=== PATIENT | male | born 1950 | race African-American/Black ===

== ENCOUNTER 2019-01-29 10:37 | Inpatient (IN) ==
[2019-01-29] MEDS ORDERED: ONDANSETRON 4 MG/2 ML VIAL IV STA (11:08)
[2019-01-29] MEDS ORDERED: SODIUM CHLORIDE 0.9% 1,000 ML IV STA (11:08)
[2019-01-29 11:40] LABS: Basophils % 0.2 % (0.0-0.8); Eosinophils # 0.1 10*3/uL (0.0-0.87); Eosinophils % 0.9 % (0.00-10.9); Hematocrit 43.8 VOL% (42.0-52.0); Immature Granulocytes % 0.6 %; Immature Granulocytes Absolute 0.03 #; Lymphocytes # 1.1 10*3/uL (1.4-4.0); Lymphocytes % 19.8 % (21.2-54.2); Mean Corpuscular Volume 90.9 FL (87-102); Mean Platelet Volume 9.9 FL (9.6-12.0); Monocytes % 18.2 % (1.7-12.7); Neutrophils % 60.3 % (38.7-73.9); Platelet Count 219 T/CUMM (130-400); Red Blood Count 4.82 MC/CUMM (3.8-5.5); Red Cell Distribution Width 13.8 % (9.3-17.3); White Blood Count 5.5 T/CUMM (4-12)
[2019-01-29 11:57] LABS: Alanine Aminotransferase 33 U/L (16-61); Albumin 3.8 G/DL (3.4-5.0); Alkaline Phosphatase 93 U/L (45-117); Aspartate Amino Transferase 21 U/L (0-37); Blood Urea Nitrogen 27 MG/DL (7-18); Calcium 8.7 MG/DL (8.5-10.1); Glucose 137 MG/DL (74-106); Osmolality,Calculated 281.7 MOS/KG (273-304); Total Protein 7.5 G/DL (6.4-8.3)
[2019-01-29] MEDS ORDERED: ACETAMINOPHEN 325 MG TABLET PO PRN (12:58)
[2019-01-29 13:43] LABS: Band Neutrophils 9 % (0-10); Eosinophils 4 % (0-10); Lymphocytes 15 % (20-55); Segmented Neutrophils 56 % (50-85); Total Cells Counted 100
[2019-01-29 13:44] LABS: Anisocytosis 1+; Macrocytosis 1+; Platelet Estimate Normal; Polychromasia 1+
[2019-01-29 13:48] LABS: Apearance,Urine CLEAR (Clear); Bilirubin,Urine Negative (Negative); Blood, Urine Small mg/dL (Negative); Glucose,Urine (UA) Negative (Negative); Hyaline Casts,Urine 21 /LPF (0-3); Ketones,Urine Negative (Negative); Mucus,Urine Many /LPF (Occasional); Nitrite,Urine Negative (Negative); Protein,Urine 30 MG/DL; RBC,Urine 16 /HPF (0-4); Squamous Epithelial Cell,Urine Occasional /HPF (0-10); Urine Color Amber (Yellow); Urine Specific Gravity 1.027 (1.001-1.035); Urine Urobilinogen < 2.0 EU/DL (0.2-1.0); WBC,Urine 12 /HPF (0-6)
[2019-01-29] MEDS: DEXTROSE 5% NACL 0.45% 1,000 ML IV SCH (16:20)
[2019-01-29] MEDS ORDERED: ALBUTEROL/IPRATROPIUM 3 ML NEB RESP TX PRN (21:23)
[2019-01-30] MEDS: DEXTROSE 5% NACL 0.45% 1,000 ML IV SCH ×3 (00:49→16:52)
[2019-01-30] MEDS: MORPHINE 4 MG/1 ML VIAL IV PRN ×2 (03:23→13:39)
[2019-01-30 05:14] LABS: Basophils % 0.2 % (0.0-0.8); Eosinophils # 0.1 10*3/uL (0.0-0.87); Eosinophils % 2.3 % (0.00-10.9); Hemoglobin 12.7 GM/DL (14.0-18.0); Immature Granulocytes % 0.5 %; Immature Granulocytes Absolute 0.02 #; Lymphocytes # 0.9 10*3/uL (1.4-4.0); Lymphocytes % 20.4 % (21.2-54.2); Mean Corpuscular HGB Conc 31.8 GM/DL (32-36); Mean Corpuscular Volume 90.7 FL (87-102); Monocytes % 23.5 % (1.7-12.7); Neutrophils % 53.1 % (38.7-73.9); Platelet Count 213 T/CUMM (130-400); Red Blood Count 4.41 MC/CUMM (3.8-5.5); Red Cell Distribution Width 13.7 % (9.3-17.3); White Blood Count 4.3 T/CUMM (4-12)
[2019-01-30 05:37] LABS: Band Neutrophils 16 % (0-10); Eosinophils 5 % (0-10); Hypochromasia Slight; Lymphocytes 22 % (20-55); Macrocytosis Slight; Platelet Estimate Adequate; Segmented Neutrophils 41 % (50-85); Total Cells Counted 100
[2019-01-30 05:48] LABS: Calcium 8.4 MG/DL (8.5-10.1); Osmolality,Calculated 282.5 MOS/KG (273-304)
[2019-01-30] MEDS: ENOXAPARIN 30 MG/0.3 ML SYRINGE SUBCUT SCH (06:17)
[2019-01-30] MEDS ORDERED: POTASSIUM CHLORIDE 20 MEQ TABLET PO ONE (06:32)
[2019-01-30] MEDS ORDERED: PHENOL 1.4% THROAT SPRAY 177 ML BOTTLE PO PRN (08:04)
[2019-01-30] MEDS: POTASSIUM CHLORIDE 20 MEQ TABLET PO SCH (09:12)
[2019-01-30] MEDS: PANTOPRAZOLE 40 MG TABLET PO SCH (09:12)
[2019-01-30] MEDS: CALCIUM (CITRATE) 200 MG TABLET PO SCH (09:12)
[2019-01-30] MEDS: SIMVASTATIN 10 MG TABLET PO SCH (21:15)
[2019-01-30] MEDS: MONTELUKAST 10 MG TABLET PO SCH (21:15)
[2019-01-31 05:23] LABS: Basophils % 0.6 % (0.0-0.8); Eosinophils # 0.1 10*3/uL (0.0-0.87); Eosinophils % 2.1 % (0.00-10.9); Hematocrit 41.1 VOL% (42.0-52.0); Hemoglobin 13.2 GM/DL (14.0-18.0); Immature Granulocytes % 0.4 %; Immature Granulocytes Absolute 0.02 #; Lymphocytes # 1.4 10*3/uL (1.4-4.0); Lymphocytes % 26.6 % (21.2-54.2); Mean Corpuscular HGB Conc 32.1 GM/DL (32-36); Mean Corpuscular Volume 89.7 FL (87-102); Monocytes % 21.1 % (1.7-12.7); Neutrophils % 49.2 % (38.7-73.9); Platelet Count 214 T/CUMM (130-400); Red Blood Count 4.58 MC/CUMM (3.8-5.5); Red Cell Distribution Width 13.4 % (9.3-17.3); White Blood Count 5.3 T/CUMM (4-12)
[2019-01-31 05:42] LABS: Albumin 3.1 G/DL (3.4-5.0); Bilirubin,Total 1.2 MG/DL (0.2-1.0); Calcium 8.6 MG/DL (8.5-10.1); Osmolality,Calculated 276.7 MOS/KG (273-304); Total Protein 6.7 G/DL (6.4-8.3)
[2019-01-31 06:45] LABS: Band Neutrophils 7 % (0-10); Eosinophils 1 % (0-10); Lymphocytes 26 % (20-55); Platelet Estimate Decreased; Segmented Neutrophils 44 % (50-85); Total Cells Counted 100
[2019-01-31] MEDS: CALCIUM (CITRATE) 200 MG TABLET PO SCH (08:51)
[2019-01-31] MEDS: PANTOPRAZOLE 40 MG TABLET PO SCH (08:52)
[2019-01-31] MEDS: POTASSIUM CHLORIDE 20 MEQ TABLET PO SCH (08:52)
[2019-01-31] MEDS: BENZOCAINE/MENTHOL LOZENGE 18/BOX PO PRN (12:28)
[2019-01-31] MEDS ORDERED: cloNIDine 0.2 MG/24 HR PATCH TRANSDERM SCH (21:30)
[2019-01-31] MEDS: MONTELUKAST 10 MG TABLET PO SCH (21:39)
[2019-01-31] MEDS: SIMVASTATIN 10 MG TABLET PO SCH (21:39)
[2019-01-31] MEDS: DEXTROSE 5% NACL 0.45% 1,000 ML IV SCH (21:57)
[2019-02-01] MEDS ORDERED: metroNIDAZOLE INJ 250 MG in IV BAG 1 EACH IV SCH (01:00)
[2019-02-01] MEDS: DEXTROSE 5% NACL 0.45% 1,000 ML IV SCH (01:00)
[2019-02-01] MEDS: ALBUTEROL/IPRATROPIUM 3 ML NEB RESP TX SCH ×4 (01:29→19:26)
[2019-02-01] MEDS: metroNIDAZOLE INJ 250 MG in IV BAG 1 EACH IV SCH ×4 (02:32→22:21)
[2019-02-01 04:42] LABS: Basophils % 0.3 % (0.0-0.8); Eosinophils # 0.1 10*3/uL (0.0-0.87); Eosinophils % 1.6 % (0.00-10.9); Hematocrit 39.3 VOL% (42.0-52.0); Immature Granulocytes % 0.6 %; Immature Granulocytes Absolute 0.05 #; Lymphocytes # 1.5 10*3/uL (1.4-4.0); Lymphocytes % 19.9 % (21.2-54.2); Mean Corpuscular HGB Conc 33.1 GM/DL (32-36); Mean Corpuscular Volume 87.9 FL (87-102); Mean Platelet Volume 9.6 FL (9.6-12.0); Monocytes % 17.4 % (1.7-12.7); Neutrophils % 60.2 % (38.7-73.9); Platelet Count 214 T/CUMM (130-400); Red Blood Count 4.47 MC/CUMM (3.8-5.5); Red Cell Distribution Width 13.3 % (9.3-17.3); White Blood Count 7.7 T/CUMM (4-12)
[2019-02-01] MEDS: hydrALAZINE 20 MG/1 ML VIAL IV PRN (05:00)
[2019-02-01 05:07] LABS: Calcium 8.9 MG/DL (8.5-10.1); Osmolality,Calculated 275.5 MOS/KG (273-304)
[2019-02-01 05:08] LABS: Eosinophils 4 % (0-10); Hypochromasia Slight; Lymphocytes 15 % (20-55); Microcytosis Slight; Segmented Neutrophils 69 % (50-85); Total Cells Counted 100
[2019-02-01 05:09] LABS: Ovalocytes Slight
[2019-02-01 05:10] LABS: Platelet Estimate Normal
[2019-02-01 05:11] LABS: Atypical Lymphocytes Few
[2019-02-01] MEDS ORDERED: cefOXitin 2,000 MG in SYRINGE 1 EACH IV ONE (09:56)
[2019-02-01] MEDS: FAMOTIDINE 20 MG/2 ML VIAL IV SCH ×2 (10:24→22:22)
[2019-02-01] MEDS: BISOPROLOL 5 MG TABLET PO SCH (10:38)
[2019-02-01] MEDS: cloNIDine 0.3 MG/24 HR PATCH TRANSDERM SCH (10:40)
[2019-02-01] MEDS: POTASSIUM CHLORIDE RIDER 10 MEQ in PREMIX 1 EACH IV SCH ×2 (10:40→18:23)
[2019-02-01] MEDS: CALCIUM (CITRATE) 200 MG TABLET PO SCH (10:41)
[2019-02-01] MEDS: DEXT 5% NACL 0.45% KCL 20 MEQ 20 MEQ/1,000 ML BAG IV SCH ×2 (10:41→17:28)
[2019-02-01] MEDS: POTASSIUM CHLORIDE 20 MEQ TABLET PO SCH (10:42)
[2019-02-01] MEDS: amLODIPine 10 MG TABLET PO SCH (10:42)
[2019-02-01] MEDS ORDERED: LACTATED RINGERS 1,000 ML IV SCH (11:00)
[2019-02-01] MEDS ORDERED: EPINEPHrine 1 MG/ML VIAL ONE (12:09)
[2019-02-01] MEDS ORDERED: BUPIVACAINE 0.5% 50 ML VIAL ONE (12:09)
[2019-02-01] MEDS ORDERED: DEXAMETHASONE 4 MG/1 ML VIAL ONE (12:09)
[2019-02-01] MEDS ORDERED: hydrALAZINE 20 MG/1 ML VIAL ONE (12:33)
[2019-02-01 12:49] LABS: Apearance,Urine CLEAR (Clear); Bacteria,Urine Occasional /HPF (Few); Bilirubin,Urine Negative (Negative); Blood, Urine Negative (Negative); Glucose,Urine (UA) Negative (Negative); Ketones,Urine 5 mg/dL (Negative); Mucus,Urine Occasional /LPF (Occasional); Nitrite,Urine Negative (Negative); Protein,Urine Negative; RBC,Urine 1 /HPF (0-4); Urine Color Yellow (Yellow); Urine Urobilinogen < 2.0 EU/DL (0.2-1.0); WBC,Urine <1 /HPF (0-6)
[2019-02-01] MEDS ORDERED: fentaNYL 100 MCG/2 ML VIAL ONE (12:54)
[2019-02-01] MEDS ORDERED: SEVOFLURANE 1 UNIT/15 MINUTE INH ONE (12:54)
[2019-02-01] MEDS ORDERED: ePHEDrine 50 MG/ML AMP ONE (12:55)
[2019-02-01] MEDS ORDERED: PHENYLEPHRINE 1 MG/10 ML SYRINGE IV ONE (12:55)
[2019-02-01] MEDS ORDERED: MIDAZOLAM 2 MG/2 ML VIAL ONE (12:55)
[2019-02-01] MEDS ORDERED: GLYCOPYRROLATE 0.4 MG/2 ML VIAL ONE (12:55)
[2019-02-01] MEDS ORDERED: SUCCINYLCHOLINE 200 MG/10 ML VIAL ONE (12:56)
[2019-02-01] MEDS ORDERED: NEOSTIGMINE 10 MG/10 ML VIAL ONE (12:56)
[2019-02-01] MEDS ORDERED: LACTATED RINGERS 1,000 ML IV ONE (12:56)
[2019-02-01] MEDS ORDERED: PROPOFOL 200 MG/20 ML VIAL IV ONE (12:56)
[2019-02-01] MEDS ORDERED: ROCURONIUM 100 MG/10 ML VIAL IV ONE (12:56)
[2019-02-01] MEDS ORDERED: ONDANSETRON 4 MG/2 ML VIAL IV PRN (13:06)
[2019-02-01] MEDS ORDERED: hydrALAZINE 20 MG/1 ML VIAL IV ONE (13:24)
[2019-02-01] MEDS: HYDROmorphone 2 MG/1 ML VIAL IV PRN ×3 (13:32→13:55)
[2019-02-01] MEDS: MORPHINE 4 MG/1 ML VIAL IV PRN ×2 (16:58→22:29)
[2019-02-01] MEDS: METOCLOPRAMIDE 10 MG/2 ML VIAL IV SCH (17:57)
[2019-02-01] MEDS: BENZOCAINE/MENTHOL LOZENGE 18/BOX PO PRN (20:40)
[2019-02-01] MEDS: MONTELUKAST 10 MG TABLET PO SCH (22:22)
[2019-02-01] MEDS: SIMVASTATIN 10 MG TABLET PO SCH (22:23)
[2019-02-02] MEDS: METOCLOPRAMIDE 10 MG/2 ML VIAL IV SCH ×4 (00:05→17:23)
[2019-02-02] MEDS: DEXT 5% NACL 0.45% KCL 20 MEQ 20 MEQ/1,000 ML BAG IV SCH ×3 (00:12→21:35)
[2019-02-02] MEDS: ALBUTEROL/IPRATROPIUM 3 ML NEB RESP TX SCH ×5 (00:44→23:06)
[2019-02-02] MEDS: metroNIDAZOLE INJ 250 MG in IV BAG 1 EACH IV SCH ×2 (01:35→09:45)
[2019-02-02 04:58] LABS: Basophils % 0.2 % (0.0-0.8); Hemoglobin 12.5 GM/DL (14.0-18.0); Immature Granulocytes % 0.9 %; Immature Granulocytes Absolute 0.08 #; Lymphocytes # 0.9 10*3/uL (1.4-4.0); Lymphocytes % 10.1 % (21.2-54.2); Mean Corpuscular HGB Conc 32.1 GM/DL (32-36); Mean Corpuscular Volume 89.9 FL (87-102); Mean Platelet Volume 9.7 FL (9.6-12.0); Monocytes % 15.7 % (1.7-12.7); Neutrophils % 73.1 % (38.7-73.9); Platelet Count 204 T/CUMM (130-400); Red Blood Count 4.34 MC/CUMM (3.8-5.5); Red Cell Distribution Width 13.6 % (9.3-17.3); White Blood Count 9.3 T/CUMM (4-12)
[2019-02-02 05:16] LABS: Albumin 2.8 G/DL (3.4-5.0); Bilirubin,Total 1.2 MG/DL (0.2-1.0); Calcium 8.1 MG/DL (8.5-10.1); Osmolality,Calculated 280.4 MOS/KG (273-304); Total Protein 6.3 G/DL (6.4-8.3)
[2019-02-02 05:18] LABS: Band Neutrophils 8 % (0-10); Lymphocytes 11 % (20-55); Segmented Neutrophils 65 % (50-85); Total Cells Counted 100
[2019-02-02 05:19] LABS: Hypochromasia Slight; Microcytosis Slight; Ovalocytes Slight; Platelet Estimate Adequate
[2019-02-02 05:23] LABS: Thyroid Stimulating Hormone 0.887 uIU/ml (0.358-3.74)
[2019-02-02] MEDS: MORPHINE 4 MG/1 ML VIAL IV PRN (06:15)
[2019-02-02] MEDS: BENZOCAINE/MENTHOL LOZENGE 18/BOX PO PRN ×2 (06:15→09:45)
[2019-02-02] MEDS ORDERED: MEPERIDINE 25 MG/1 ML VIAL IV PRN (09:10)
[2019-02-02] MEDS: CALCIUM (CITRATE) 200 MG TABLET PO SCH (09:48)
[2019-02-02] MEDS: FAMOTIDINE 20 MG/2 ML VIAL IV SCH ×2 (09:49→20:14)
[2019-02-02] MEDS: BISOPROLOL 5 MG TABLET PO SCH (09:49)
[2019-02-02] MEDS: POTASSIUM CHLORIDE 20 MEQ TABLET PO SCH (09:49)
[2019-02-02] MEDS: amLODIPine 10 MG TABLET PO SCH (09:49)
[2019-02-02] MEDS: ENOXAPARIN 30 MG/0.3 ML SYRINGE SUBCUT SCH (20:14)
[2019-02-02] MEDS: SIMVASTATIN 10 MG TABLET PO SCH (21:56)
[2019-02-02] MEDS: MONTELUKAST 10 MG TABLET PO SCH (21:56)
[2019-02-03] MEDS: METOCLOPRAMIDE 10 MG/2 ML VIAL IV SCH ×4 (00:12→18:56)
[2019-02-03 05:13] LABS: Basophils # 0.1 10*3/uL (0.0-0.2); Basophils % 0.5 % (0.0-0.8); Eosinophils # 0.1 10*3/uL (0.0-0.87); Eosinophils % 0.7 % (0.00-10.9); Hematocrit 38.2 VOL% (42.0-52.0); Hemoglobin 12.6 GM/DL (14.0-18.0); Immature Granulocytes % 1.7 %; Lymphocytes # 1.4 10*3/uL (1.4-4.0); Lymphocytes % 12.1 % (21.2-54.2); Mean Corpuscular Volume 88.6 FL (87-102); Mean Platelet Volume 10.3 FL (9.6-12.0); Platelet Count 198 T/CUMM (130-400); Red Blood Count 4.31 MC/CUMM (3.8-5.5); Red Cell Distribution Width 13.6 % (9.3-17.3); White Blood Count 11.9 T/CUMM (4-12)
[2019-02-03] MEDS: DEXT 5% NACL 0.45% KCL 20 MEQ 20 MEQ/1,000 ML BAG IV SCH ×3 (05:39→22:55)
[2019-02-03 06:04] LABS: Bilirubin,Total 1.1 MG/DL (0.2-1.0); Calcium 8.8 MG/DL (8.5-10.1); Osmolality,Calculated 278.5 MOS/KG (273-304); Total Protein 6.2 G/DL (6.4-8.3)
[2019-02-03] MEDS: ALBUTEROL/IPRATROPIUM 3 ML NEB RESP TX SCH ×3 (07:38→19:41)
[2019-02-03] MEDS: BISOPROLOL 5 MG TABLET PO SCH ×2 (08:05→08:43)
[2019-02-03] MEDS: CALCIUM (CITRATE) 200 MG TABLET PO SCH ×2 (08:05→08:41)
[2019-02-03] MEDS: POTASSIUM CHLORIDE 20 MEQ TABLET PO SCH ×2 (08:08→08:41)
[2019-02-03] MEDS: amLODIPine 10 MG TABLET PO SCH ×2 (08:08→08:41)
[2019-02-03] MEDS: ENOXAPARIN 30 MG/0.3 ML SYRINGE SUBCUT SCH ×2 (08:08→22:51)
[2019-02-03] MEDS: FAMOTIDINE 20 MG/2 ML VIAL IV SCH ×3 (08:09→22:52)
[2019-02-03] MEDS: hydrALAZINE 20 MG/1 ML VIAL IV PRN ×2 (08:18→16:55)
[2019-02-03] MEDS: MONTELUKAST 10 MG TABLET PO SCH (22:58)
[2019-02-03] MEDS: SIMVASTATIN 10 MG TABLET PO SCH (22:58)
[2019-02-04] MEDS: ALBUTEROL/IPRATROPIUM 3 ML NEB RESP TX SCH ×4 (00:51→19:28)
[2019-02-04] MEDS: METOCLOPRAMIDE 10 MG/2 ML VIAL IV SCH ×5 (00:55→23:42)
[2019-02-04] MEDS: DEXT 5% NACL 0.45% KCL 20 MEQ 20 MEQ/1,000 ML BAG IV SCH ×4 (01:00→23:41)
[2019-02-04 04:40] LABS: Basophils # 0.1 10*3/uL (0.0-0.2); Basophils % 0.4 % (0.0-0.8); Eosinophils # 0.2 10*3/uL (0.0-0.87); Eosinophils % 1.3 % (0.00-10.9); Hematocrit 36.1 VOL% (42.0-52.0); Immature Granulocytes % 2.2 %; Immature Granulocytes Absolute 0.27 #; Lymphocytes # 1.6 10*3/uL (1.4-4.0); Lymphocytes % 13.2 % (21.2-54.2); Mean Corpuscular HGB Conc 33.2 GM/DL (32-36); Mean Corpuscular Volume 88.3 FL (87-102); Mean Platelet Volume 9.6 FL (9.6-12.0); Monocytes % 12.6 % (1.7-12.7); Neutrophils % 70.3 % (38.7-73.9); Platelet Count 187 T/CUMM (130-400); Red Blood Count 4.09 MC/CUMM (3.8-5.5); Red Cell Distribution Width 13.8 % (9.3-17.3); White Blood Count 12.3 T/CUMM (4-12)
[2019-02-04 04:54] LABS: Calcium 8.6 MG/DL (8.5-10.1); Osmolality,Calculated 278.5 MOS/KG (273-304)
[2019-02-04 04:58] LABS: Albumin 2.7 G/DL (3.4-5.0); Bilirubin,Total 1.5 MG/DL (0.2-1.0); Calcium 8.6 MG/DL (8.5-10.1); Osmolality,Calculated 280.4 MOS/KG (273-304)
[2019-02-04] MEDS: ENOXAPARIN 30 MG/0.3 ML SYRINGE SUBCUT SCH ×2 (08:12→21:34)
[2019-02-04] MEDS: BISOPROLOL 5 MG TABLET PO SCH (08:18)
[2019-02-04] MEDS: amLODIPine 10 MG TABLET PO SCH (08:18)
[2019-02-04] MEDS: POTASSIUM CHLORIDE 20 MEQ TABLET PO SCH (08:18)
[2019-02-04] MEDS: CALCIUM (CITRATE) 200 MG TABLET PO SCH (08:19)
[2019-02-04] MEDS: FAMOTIDINE 20 MG/2 ML VIAL IV SCH ×2 (09:14→21:35)
[2019-02-04] MEDS: MONTELUKAST 10 MG TABLET PO SCH (21:45)
[2019-02-04] MEDS: SIMVASTATIN 10 MG TABLET PO SCH (21:45)
[2019-02-05] MEDS: ALBUTEROL/IPRATROPIUM 3 ML NEB RESP TX SCH ×4 (01:10→19:04)
[2019-02-05] MEDS: METOCLOPRAMIDE 10 MG/2 ML VIAL IV SCH ×3 (05:52→17:25)
[2019-02-05 05:53] LABS: Basophils % 0.3 % (0.0-0.8); Eosinophils # 0.2 10*3/uL (0.0-0.87); Hematocrit 37.4 VOL% (42.0-52.0); Hemoglobin 12.3 GM/DL (14.0-18.0); Immature Granulocytes % 1.6 %; Immature Granulocytes Absolute 0.18 #; Lymphocytes # 1.6 10*3/uL (1.4-4.0); Lymphocytes % 13.4 % (21.2-54.2); Mean Corpuscular HGB Conc 32.9 GM/DL (32-36); Mean Corpuscular Volume 89.7 FL (87-102); Mean Platelet Volume 10.4 FL (9.6-12.0); Monocytes % 13.4 % (1.7-12.7); Neutrophils % 69.3 % (38.7-73.9); Platelet Count 214 T/CUMM (130-400); Red Blood Count 4.17 MC/CUMM (3.8-5.5); White Blood Count 11.6 T/CUMM (4-12)
[2019-02-05 06:27] LABS: Albumin 2.7 G/DL (3.4-5.0); Bilirubin,Total 1.5 MG/DL (0.2-1.0); Calcium 8.5 MG/DL (8.5-10.1); Osmolality,Calculated 279.4 MOS/KG (273-304); Total Protein 6.1 G/DL (6.4-8.3)
[2019-02-05] MEDS: DEXT 5% NACL 0.45% KCL 20 MEQ 20 MEQ/1,000 ML BAG IV SCH ×3 (08:49→17:32)
[2019-02-05] MEDS: FAMOTIDINE 20 MG/2 ML VIAL IV SCH ×2 (08:54→20:54)
[2019-02-05] MEDS: ENOXAPARIN 30 MG/0.3 ML SYRINGE SUBCUT SCH ×2 (08:55→21:22)
[2019-02-05] MEDS: CALCIUM (CITRATE) 200 MG TABLET PO SCH (10:45)
[2019-02-05] MEDS: POTASSIUM CHLORIDE 20 MEQ TABLET PO SCH (10:46)
[2019-02-05] MEDS: amLODIPine 10 MG TABLET PO SCH (10:46)
[2019-02-05] MEDS: BISOPROLOL 5 MG TABLET PO SCH (10:47)
[2019-02-05] MEDS: hydrALAZINE 20 MG/1 ML VIAL IV PRN (12:17)
[2019-02-05] MEDS: MONTELUKAST 10 MG TABLET PO SCH (22:25)
[2019-02-05] MEDS: SIMVASTATIN 10 MG TABLET PO SCH (22:25)
[2019-02-06] MEDS: DEXT 5% NACL 0.45% KCL 20 MEQ 20 MEQ/1,000 ML BAG IV SCH ×4 (00:10→22:42)
[2019-02-06] MEDS: METOCLOPRAMIDE 10 MG/2 ML VIAL IV SCH ×5 (00:10→23:28)
[2019-02-06] MEDS: ALBUTEROL/IPRATROPIUM 3 ML NEB RESP TX SCH ×4 (01:40→19:52)
[2019-02-06 05:19] LABS: Basophils % 0.3 % (0.0-0.8); Eosinophils # 0.4 10*3/uL (0.0-0.87); Eosinophils % 3.1 % (0.00-10.9); Hematocrit 35.7 VOL% (42.0-52.0); Hemoglobin 11.7 GM/DL (14.0-18.0); Immature Granulocytes % 1.3 %; Immature Granulocytes Absolute 0.15 #; Lymphocytes # 1.5 10*3/uL (1.4-4.0); Lymphocytes % 12.7 % (21.2-54.2); Mean Corpuscular HGB Conc 32.8 GM/DL (32-36); Mean Corpuscular Volume 90.6 FL (87-102); Mean Platelet Volume 10.3 FL (9.6-12.0); Monocytes % 11.2 % (1.7-12.7); Neutrophils % 71.4 % (38.7-73.9); Platelet Count 227 T/CUMM (130-400); Red Blood Count 3.94 MC/CUMM (3.8-5.5); Red Cell Distribution Width 14.1 % (9.3-17.3); White Blood Count 11.5 T/CUMM (4-12)
[2019-02-06 06:08] LABS: Albumin 2.6 G/DL (3.4-5.0); Bilirubin,Total 1.4 MG/DL (0.2-1.0); Calcium 8.6 MG/DL (8.5-10.1); Osmolality,Calculated 279.4 MOS/KG (273-304); Total Protein 5.9 G/DL (6.4-8.3)
[2019-02-06] MEDS: POTASSIUM CHLORIDE 20 MEQ TABLET PO SCH (09:02)
[2019-02-06] MEDS: CALCIUM (CITRATE) 200 MG TABLET PO SCH (09:02)
[2019-02-06] MEDS: amLODIPine 10 MG TABLET PO SCH (09:03)
[2019-02-06] MEDS: BISOPROLOL 5 MG TABLET PO SCH (09:03)
[2019-02-06] MEDS: FAMOTIDINE 20 MG/2 ML VIAL IV SCH ×2 (09:05→21:50)
[2019-02-06] MEDS: ENOXAPARIN 30 MG/0.3 ML SYRINGE SUBCUT SCH ×2 (09:05→19:23)
[2019-02-06] MEDS: SIMVASTATIN 10 MG TABLET PO SCH (21:45)
[2019-02-06] MEDS: MONTELUKAST 10 MG TABLET PO SCH (21:45)
[2019-02-07] MEDS: ALBUTEROL/IPRATROPIUM 3 ML NEB RESP TX SCH ×4 (00:20→20:15)
[2019-02-07 05:04] LABS: Basophils # 0.1 10*3/uL (0.0-0.2); Basophils % 0.4 % (0.0-0.8); Eosinophils # 0.3 10*3/uL (0.0-0.87); Eosinophils % 2.5 % (0.00-10.9); Hemoglobin 11.3 GM/DL (14.0-18.0); Immature Granulocytes % 0.8 %; Immature Granulocytes Absolute 0.09 #; Lymphocytes # 1.5 10*3/uL (1.4-4.0); Lymphocytes % 13.4 % (21.2-54.2); Mean Corpuscular HGB Conc 33.2 GM/DL (32-36); Mean Corpuscular Volume 90.2 FL (87-102); Mean Platelet Volume 10.3 FL (9.6-12.0); Monocytes % 10.4 % (1.7-12.7); Neutrophils % 72.5 % (38.7-73.9); Platelet Count 223 T/CUMM (130-400); Red Blood Count 3.77 MC/CUMM (3.8-5.5); Red Cell Distribution Width 13.9 % (9.3-17.3); White Blood Count 11.4 T/CUMM (4-12)
[2019-02-07 05:20] LABS: Calcium 8.5 MG/DL (8.5-10.1); Osmolality,Calculated 279.4 MOS/KG (273-304)
[2019-02-07] MEDS: DEXT 5% NACL 0.45% KCL 20 MEQ 20 MEQ/1,000 ML BAG IV SCH ×3 (05:32→23:15)
[2019-02-07] MEDS: METOCLOPRAMIDE 10 MG/2 ML VIAL IV SCH ×4 (05:33→23:50)
[2019-02-07] MEDS: ENOXAPARIN 30 MG/0.3 ML SYRINGE SUBCUT SCH ×2 (07:24→21:09)
[2019-02-07] MEDS: amLODIPine 10 MG TABLET PO SCH (09:40)
[2019-02-07] MEDS: CALCIUM (CITRATE) 200 MG TABLET PO SCH (09:40)
[2019-02-07] MEDS: BISOPROLOL 5 MG TABLET PO SCH (09:40)
[2019-02-07] MEDS: POTASSIUM CHLORIDE 20 MEQ TABLET PO SCH (09:40)
[2019-02-07] MEDS: FAMOTIDINE 20 MG/2 ML VIAL IV SCH ×2 (12:27→21:09)
[2019-02-07] MEDS: SIMVASTATIN 10 MG TABLET PO SCH (21:09)
[2019-02-07] MEDS: MONTELUKAST 10 MG TABLET PO SCH (21:09)
[2019-02-08] MEDS: ALBUTEROL/IPRATROPIUM 3 ML NEB RESP TX SCH ×4 (00:55→20:06)
[2019-02-08 04:24] LABS: Basophils % 0.3 % (0.0-0.8); Eosinophils # 0.2 10*3/uL (0.0-0.87); Eosinophils % 2.2 % (0.00-10.9); Hematocrit 34.1 VOL% (42.0-52.0); Hemoglobin 11.1 GM/DL (14.0-18.0); Immature Granulocytes % 0.8 %; Immature Granulocytes Absolute 0.08 #; Lymphocytes # 1.3 10*3/uL (1.4-4.0); Lymphocytes % 12.7 % (21.2-54.2); Mean Corpuscular HGB Conc 32.6 GM/DL (32-36); Mean Platelet Volume 9.9 FL (9.6-12.0); Monocytes % 10.3 % (1.7-12.7); Neutrophils % 73.7 % (38.7-73.9); Platelet Count 227 T/CUMM (130-400); Red Blood Count 3.79 MC/CUMM (3.8-5.5); Red Cell Distribution Width 13.7 % (9.3-17.3); White Blood Count 10.4 T/CUMM (4-12)
[2019-02-08 04:38] LABS: Calcium 8.2 MG/DL (8.5-10.1); Osmolality,Calculated 275.7 MOS/KG (273-304)
[2019-02-08] MEDS: METOCLOPRAMIDE 10 MG/2 ML VIAL IV SCH ×3 (05:31→17:39)
[2019-02-08] MEDS: DEXT 5% NACL 0.45% KCL 20 MEQ 20 MEQ/1,000 ML BAG IV SCH ×2 (08:29→17:38)
[2019-02-08] MEDS: CALCIUM (CITRATE) 200 MG TABLET PO SCH (09:16)
[2019-02-08] MEDS: amLODIPine 10 MG TABLET PO SCH (09:16)
[2019-02-08] MEDS: BISOPROLOL 5 MG TABLET PO SCH (09:16)
[2019-02-08] MEDS: POTASSIUM CHLORIDE 20 MEQ TABLET PO SCH (09:17)
[2019-02-08] MEDS: FAMOTIDINE 20 MG/2 ML VIAL IV SCH ×2 (09:18→21:34)
[2019-02-08] MEDS: cloNIDine 0.3 MG/24 HR PATCH TRANSDERM SCH (09:33)
[2019-02-08] MEDS: ENOXAPARIN 30 MG/0.3 ML SYRINGE SUBCUT SCH ×2 (11:27→19:30)
[2019-02-08] MEDS: SIMETHICONE CHEW 125 MG TABLET PO SCH ×3 (12:40→21:34)
[2019-02-08] MEDS: MONTELUKAST 10 MG TABLET PO SCH (21:34)
[2019-02-08] MEDS: SIMVASTATIN 10 MG TABLET PO SCH (21:34)
[2019-02-09] MEDS: METOCLOPRAMIDE 10 MG/2 ML VIAL IV SCH ×4 (00:19→17:45)
[2019-02-09] MEDS: ALBUTEROL/IPRATROPIUM 3 ML NEB RESP TX SCH ×4 (00:24→19:02)
[2019-02-09] MEDS: DEXT 5% NACL 0.45% KCL 20 MEQ 20 MEQ/1,000 ML BAG IV SCH ×4 (01:22→21:27)
[2019-02-09 04:46] LABS: Basophils % 0.4 % (0.0-0.8); Eosinophils # 0.1 10*3/uL (0.0-0.87); Hematocrit 36.4 VOL% (42.0-52.0); Hemoglobin 11.5 GM/DL (14.0-18.0); Immature Granulocytes % 0.7 %; Immature Granulocytes Absolute 0.08 #; Lymphocytes # 1.6 10*3/uL (1.4-4.0); Lymphocytes % 13.8 % (21.2-54.2); Mean Corpuscular HGB Conc 31.6 GM/DL (32-36); Mean Platelet Volume 9.9 FL (9.6-12.0); Monocytes % 9.3 % (1.7-12.7); Neutrophils % 74.8 % (38.7-73.9); Platelet Count 276 T/CUMM (130-400); Red Cell Distribution Width 13.6 % (9.3-17.3); White Blood Count 11.4 T/CUMM (4-12)
[2019-02-09 05:19] LABS: Anisocytosis Slight; Lymphocytes 12 % (20-55); Segmented Neutrophils 74 % (50-85); Total Cells Counted 100
[2019-02-09 05:20] LABS: Microcytosis Slight
[2019-02-09 05:21] LABS: Ovalocytes Slight; Platelet Estimate Normal; Polychromasia Slight
[2019-02-09 05:29] LABS: Calcium 8.9 MG/DL (8.5-10.1); Osmolality,Calculated 273.7 MOS/KG (273-304)
[2019-02-09] MEDS: SIMETHICONE CHEW 125 MG TABLET PO SCH ×4 (09:38→21:52)
[2019-02-09] MEDS: CALCIUM (CITRATE) 200 MG TABLET PO SCH (09:38)
[2019-02-09] MEDS: BISOPROLOL 5 MG TABLET PO SCH (09:38)
[2019-02-09] MEDS: POTASSIUM CHLORIDE 20 MEQ TABLET PO SCH (09:38)
[2019-02-09] MEDS: amLODIPine 10 MG TABLET PO SCH (09:38)
[2019-02-09] MEDS: FAMOTIDINE 20 MG/2 ML VIAL IV SCH ×2 (09:42→21:48)
[2019-02-09] MEDS: ENOXAPARIN 30 MG/0.3 ML SYRINGE SUBCUT SCH ×2 (10:33→21:44)
[2019-02-09] MEDS: MONTELUKAST 10 MG TABLET PO SCH (21:43)
[2019-02-09] MEDS: SIMVASTATIN 10 MG TABLET PO SCH (21:43)
[2019-02-10] MEDS: ALBUTEROL/IPRATROPIUM 3 ML NEB RESP TX SCH ×4 (00:16→19:32)
[2019-02-10] MEDS: METOCLOPRAMIDE 10 MG/2 ML VIAL IV SCH ×4 (00:56→17:40)
[2019-02-10] MEDS: DEXT 5% NACL 0.45% KCL 20 MEQ 20 MEQ/1,000 ML BAG IV SCH ×3 (01:02→17:40)
[2019-02-10 05:53] LABS: Basophils % 0.4 % (0.0-0.8); Eosinophils # 0.2 10*3/uL (0.0-0.87); Eosinophils % 2.4 % (0.00-10.9); Hematocrit 35.1 VOL% (42.0-52.0); Immature Granulocytes % 0.9 %; Immature Granulocytes Absolute 0.08 #; Lymphocytes # 1.9 10*3/uL (1.4-4.0); Lymphocytes % 20.8 % (21.2-54.2); Mean Corpuscular HGB Conc 31.3 GM/DL (32-36); Mean Corpuscular Volume 92.1 FL (87-102); Monocytes % 10.3 % (1.7-12.7); Neutrophils % 65.2 % (38.7-73.9); Platelet Count 308 T/CUMM (130-400); Red Blood Count 3.81 MC/CUMM (3.8-5.5); Red Cell Distribution Width 13.9 % (9.3-17.3); White Blood Count 9.1 T/CUMM (4-12)
[2019-02-10 06:17] LABS: Band Neutrophils 1 % (0-10); Eosinophils 4 % (0-10); Hypochromasia 1+; Lymphocytes 19 % (20-55); Ovalocytes Slight; Platelet Estimate Adequate; Segmented Neutrophils 70 % (50-85); Total Cells Counted 100
[2019-02-10 06:20] LABS: Calcium 8.7 MG/DL (8.5-10.1); Osmolality,Calculated 278.4 MOS/KG (273-304)
[2019-02-10] MEDS: SIMETHICONE CHEW 125 MG TABLET PO SCH ×4 (11:37→20:00)
[2019-02-10] MEDS: BISOPROLOL 5 MG TABLET PO SCH (12:40)
[2019-02-10] MEDS: amLODIPine 10 MG TABLET PO SCH (12:40)
[2019-02-10] MEDS: ENOXAPARIN 30 MG/0.3 ML SYRINGE SUBCUT SCH ×2 (12:41→21:02)
[2019-02-10] MEDS: FAMOTIDINE 20 MG/2 ML VIAL IV SCH ×2 (12:41→21:03)
[2019-02-10] MEDS: POTASSIUM CHLORIDE 20 MEQ TABLET PO SCH (12:41)
[2019-02-10] MEDS: CALCIUM (CITRATE) 200 MG TABLET PO SCH (12:41)
[2019-02-10] MEDS: MONTELUKAST 10 MG TABLET PO SCH (20:00)
[2019-02-10] MEDS: SIMVASTATIN 10 MG TABLET PO SCH (20:00)
[2019-02-11] MEDS: ALBUTEROL/IPRATROPIUM 3 ML NEB RESP TX SCH ×4 (00:10→19:02)
[2019-02-11] MEDS: METOCLOPRAMIDE 10 MG/2 ML VIAL IV SCH ×4 (00:35→18:40)
[2019-02-11] MEDS: DEXT 5% NACL 0.45% KCL 20 MEQ 20 MEQ/1,000 ML BAG IV SCH ×4 (01:38→23:28)
[2019-02-11] MEDS: ENOXAPARIN 30 MG/0.3 ML SYRINGE SUBCUT SCH (09:00)
[2019-02-11] MEDS: POTASSIUM CHLORIDE 20 MEQ TABLET PO SCH (09:28)
[2019-02-11] MEDS: CALCIUM (CITRATE) 200 MG TABLET PO SCH (09:28)
[2019-02-11] MEDS: amLODIPine 10 MG TABLET PO SCH (09:29)
[2019-02-11] MEDS: SIMETHICONE CHEW 125 MG TABLET PO SCH ×4 (09:29→20:09)
[2019-02-11] MEDS: FAMOTIDINE 20 MG/2 ML VIAL IV SCH ×2 (09:29→20:08)
[2019-02-11] MEDS: BISOPROLOL 5 MG TABLET PO SCH (09:30)
[2019-02-11] MEDS ORDERED: DEXTROSE 50% 25 GM/50 ML VIAL IV PRN (11:29)
[2019-02-11] MEDS ORDERED: GLUCAGON 1 MG VIAL IM PRN (11:29)
[2019-02-11] MEDS ORDERED: FAT EMULSION 20% 250 ML IV SCH ×2 (14:00→17:00)
[2019-02-11] MEDS ORDERED: TRACE ELEMENTS (5) 1 ML, MULTIVITAMIN INJ 10 ML in AMINO ACIDS/DEXT/LYTES 5-15% 1,000 ML IV SCH (17:00)
[2019-02-11] MEDS: INSULIN REGULAR 100 UNIT/ML SUBCUT SCH ×2 (18:11→23:52)
[2019-02-11] MEDS: SIMVASTATIN 10 MG TABLET PO SCH (20:09)
[2019-02-11] MEDS: MONTELUKAST 10 MG TABLET PO SCH (20:09)
[2019-02-12] MEDS: BENZOCAINE/MENTHOL LOZENGE 18/BOX PO PRN (00:07)
[2019-02-12] MEDS: METOCLOPRAMIDE 10 MG/2 ML VIAL IV SCH ×4 (00:08→18:43)
[2019-02-12] MEDS: ALBUTEROL/IPRATROPIUM 3 ML NEB RESP TX SCH ×4 (00:39→19:46)
[2019-02-12 05:33] LABS: Calcium 8.7 MG/DL (8.5-10.1); Osmolality,Calculated 280.4 MOS/KG (273-304); Prealbumin 13.7 MG/DL (20-40)
[2019-02-12] MEDS: INSULIN REGULAR 100 UNIT/ML SUBCUT SCH ×3 (05:52→18:42)
[2019-02-12] MEDS: DEXT 5% NACL 0.45% KCL 20 MEQ 20 MEQ/1,000 ML BAG IV SCH ×2 (08:45→17:55)
[2019-02-12] MEDS: amLODIPine 10 MG TABLET PO SCH (10:24)
[2019-02-12] MEDS: BISOPROLOL 5 MG TABLET PO SCH (10:24)
[2019-02-12] MEDS: FAMOTIDINE 20 MG/2 ML VIAL IV SCH ×2 (10:26→20:48)
[2019-02-12] MEDS: POTASSIUM CHLORIDE 20 MEQ TABLET PO SCH (10:26)
[2019-02-12] MEDS: SIMETHICONE CHEW 125 MG TABLET PO SCH ×4 (10:26→21:11)
[2019-02-12] MEDS: CALCIUM (CITRATE) 200 MG TABLET PO SCH (10:26)
[2019-02-12] MEDS: ENOXAPARIN 40 MG/0.4 ML SYRINGE SUBCUT SCH (10:27)
[2019-02-12] MEDS: FAT EMULSION 20% 250 ML IV SCH (14:42)
[2019-02-12] MEDS ORDERED: DEXTROSE 10% 1,000 ML IV PRN (17:00)
[2019-02-12] MEDS: TRACE ELEMENTS (5) 1 ML, MULTIVITAMIN INJ 10 ML in AMINO ACIDS/DEXT/LYTES 5-15% 2,000 ML IV SCH (17:40)
[2019-02-12] MEDS: MONTELUKAST 10 MG TABLET PO SCH (20:46)
[2019-02-12] MEDS: SIMVASTATIN 10 MG TABLET PO SCH (20:46)
[2019-02-13] MEDS: INSULIN REGULAR 100 UNIT/ML SUBCUT SCH ×4 (00:10→18:20)
[2019-02-13] MEDS: METOCLOPRAMIDE 10 MG/2 ML VIAL IV SCH ×4 (00:11→18:19)
[2019-02-13] MEDS: DEXT 5% NACL 0.45% KCL 20 MEQ 20 MEQ/1,000 ML BAG IV SCH ×3 (02:51→15:15)
[2019-02-13] MEDS: ALBUTEROL/IPRATROPIUM 3 ML NEB RESP TX SCH ×4 (07:10→20:10)
[2019-02-13] MEDS: ENOXAPARIN 40 MG/0.4 ML SYRINGE SUBCUT SCH (10:01)
[2019-02-13] MEDS: amLODIPine 10 MG TABLET PO SCH (10:01)
[2019-02-13] MEDS: FAMOTIDINE 20 MG/2 ML VIAL IV SCH ×2 (10:02→22:23)
[2019-02-13] MEDS: BISOPROLOL 5 MG TABLET PO SCH (10:02)
[2019-02-13] MEDS: PROCHLORPERAZINE 10 MG TABLET PO PRN ×3 (10:03→22:33)
[2019-02-13] MEDS: POTASSIUM CHLORIDE 20 MEQ TABLET PO SCH (10:11)
[2019-02-13] MEDS: CALCIUM (CITRATE) 200 MG TABLET PO SCH (10:11)
[2019-02-13] MEDS: SIMETHICONE CHEW 125 MG TABLET PO SCH ×4 (10:12→22:23)
[2019-02-13] MEDS: TRACE ELEMENTS (5) 1 ML, MULTIVITAMIN INJ 10 ML in AMINO ACIDS/DEXT/LYTES 5-15% 2,000 ML IV SCH (14:06)
[2019-02-13] MEDS: FAT EMULSION 20% 250 ML IV SCH (15:04)
[2019-02-13] MEDS: MONTELUKAST 10 MG TABLET PO SCH (22:23)
[2019-02-13] MEDS: SIMVASTATIN 10 MG TABLET PO SCH (22:23)
[2019-02-14] MEDS: ALBUTEROL/IPRATROPIUM 3 ML NEB RESP TX SCH ×4 (00:54→19:48)
[2019-02-14] MEDS: INSULIN REGULAR 100 UNIT/ML SUBCUT SCH ×4 (00:57→17:25)
[2019-02-14] MEDS: METOCLOPRAMIDE 10 MG/2 ML VIAL IV SCH ×4 (00:59→18:18)
[2019-02-14 05:19] LABS: Calcium 8.8 MG/DL (8.5-10.1); Osmolality,Calculated 282.5 MOS/KG (273-304)
[2019-02-14] MEDS: PROCHLORPERAZINE 10 MG TABLET PO PRN ×3 (07:50→20:18)
[2019-02-14] MEDS: amLODIPine 10 MG TABLET PO SCH (09:26)
[2019-02-14] MEDS: BISOPROLOL 5 MG TABLET PO SCH (09:26)
[2019-02-14] MEDS: FAMOTIDINE 20 MG/2 ML VIAL IV SCH ×2 (09:26→20:24)
[2019-02-14] MEDS: ENOXAPARIN 40 MG/0.4 ML SYRINGE SUBCUT SCH (09:26)
[2019-02-14] MEDS: POTASSIUM CHLORIDE 20 MEQ TABLET PO SCH (09:35)
[2019-02-14] MEDS: TRACE ELEMENTS (5) 1 ML, MULTIVITAMIN INJ 10 ML in AMINO ACIDS/DEXT/LYTES 5-15% 2,000 ML IV SCH (09:35)
[2019-02-14] MEDS: SIMETHICONE CHEW 125 MG TABLET PO SCH ×4 (09:35→20:24)
[2019-02-14] MEDS: CALCIUM (CITRATE) 200 MG TABLET PO SCH (09:35)
[2019-02-14] MEDS: FAT EMULSION 20% 250 ML IV SCH (14:47)
[2019-02-14] MEDS: MONTELUKAST 10 MG TABLET PO SCH (20:22)
[2019-02-14] MEDS: SIMVASTATIN 10 MG TABLET PO SCH (20:22)
[2019-02-15] MEDS: METOCLOPRAMIDE 10 MG/2 ML VIAL IV SCH ×4 (00:29→17:52)
[2019-02-15] MEDS: INSULIN REGULAR 100 UNIT/ML SUBCUT SCH ×4 (00:32→18:13)
[2019-02-15] MEDS: ALBUTEROL/IPRATROPIUM 3 ML NEB RESP TX SCH ×4 (01:05→19:00)
[2019-02-15] MEDS: PROCHLORPERAZINE 10 MG TABLET PO PRN ×2 (03:21→15:38)
[2019-02-15] MEDS: TRACE ELEMENTS (5) 1 ML, MULTIVITAMIN INJ 10 ML in AMINO ACIDS/DEXT/LYTES 5-15% 2,000 ML IV SCH (05:40)
[2019-02-15 05:48] LABS: Calcium 8.7 MG/DL (8.5-10.1); Osmolality,Calculated 281.5 MOS/KG (273-304); Prealbumin 17.7 MG/DL (20-40)
[2019-02-15] MEDS ORDERED: chlorproMAZINE 25 MG/1 ML AMP IM ONE ×2 (08:20→17:29)
[2019-02-15] MEDS ORDERED: FAMOTIDINE 20 MG/2 ML VIAL IV SCH (09:00)
[2019-02-15] MEDS: BISOPROLOL 5 MG TABLET PO SCH (09:51)
[2019-02-15] MEDS: cloNIDine 0.3 MG/24 HR PATCH TRANSDERM SCH (09:51)
[2019-02-15] MEDS: ENOXAPARIN 40 MG/0.4 ML SYRINGE SUBCUT SCH (09:51)
[2019-02-15] MEDS: amLODIPine 10 MG TABLET PO SCH (09:51)
[2019-02-15] MEDS: FAMOTIDINE 20 MG/2 ML VIAL IV SCH ×2 (09:55→20:56)
[2019-02-15] MEDS: POTASSIUM CHLORIDE 20 MEQ TABLET PO SCH (09:55)
[2019-02-15] MEDS: SIMETHICONE CHEW 125 MG TABLET PO SCH ×4 (09:55→20:57)
[2019-02-15] MEDS: CALCIUM (CITRATE) 200 MG TABLET PO SCH (09:55)
[2019-02-15] MEDS: FAT EMULSION 20% 250 ML IV SCH (13:20)
[2019-02-15] MEDS: MONTELUKAST 10 MG TABLET PO SCH (20:52)
[2019-02-15] MEDS: SIMVASTATIN 10 MG TABLET PO SCH (20:56)
[2019-02-16] MEDS: ALBUTEROL/IPRATROPIUM 3 ML NEB RESP TX SCH ×4 (00:40→19:46)
[2019-02-16] MEDS: TRACE ELEMENTS (5) 1 ML, MULTIVITAMIN INJ 10 ML in AMINO ACIDS/DEXT/LYTES 5-15% 2,000 ML IV SCH ×2 (01:47→23:50)
[2019-02-16] MEDS: INSULIN REGULAR 100 UNIT/ML SUBCUT SCH ×4 (02:30→18:19)
[2019-02-16] MEDS: METOCLOPRAMIDE 10 MG/2 ML VIAL IV SCH ×4 (02:31→18:20)
[2019-02-16 04:42] LABS: Basophils # 0.1 10*3/uL (0.0-0.2); Basophils % 0.6 % (0.0-0.8); Eosinophils # 0.4 10*3/uL (0.0-0.87); Eosinophils % 5.3 % (0.00-10.9); Hemoglobin 11.1 GM/DL (14.0-18.0); Immature Granulocytes % 0.3 %; Immature Granulocytes Absolute 0.02 #; Lymphocytes # 0.9 10*3/uL (1.4-4.0); Lymphocytes % 12.1 % (21.2-54.2); Mean Corpuscular HGB Conc 32.6 GM/DL (32-36); Mean Corpuscular Volume 90.4 FL (87-102); Mean Platelet Volume 9.6 FL (9.6-12.0); Monocytes % 10.7 % (1.7-12.7); Platelet Count 370 T/CUMM (130-400); Red Blood Count 3.76 MC/CUMM (3.8-5.5); Red Cell Distribution Width 13.8 % (9.3-17.3); White Blood Count 7.8 T/CUMM (4-12)
[2019-02-16 04:47] LABS: Albumin 2.8 G/DL (3.4-5.0); Bilirubin,Total 1.3 MG/DL (0.2-1.0); Osmolality,Calculated 284.5 MOS/KG (273-304); Total Protein 6.2 G/DL (6.4-8.3)
[2019-02-16] MEDS: SIMETHICONE CHEW 125 MG TABLET PO SCH ×4 (09:33→21:51)
[2019-02-16] MEDS: POTASSIUM CHLORIDE 20 MEQ TABLET PO SCH (09:33)
[2019-02-16] MEDS: BISOPROLOL 5 MG TABLET PO SCH (09:33)
[2019-02-16] MEDS: CALCIUM (CITRATE) 200 MG TABLET PO SCH (09:33)
[2019-02-16] MEDS: amLODIPine 10 MG TABLET PO SCH (09:33)
[2019-02-16] MEDS: ENOXAPARIN 40 MG/0.4 ML SYRINGE SUBCUT SCH (09:33)
[2019-02-16] MEDS: FAMOTIDINE 20 MG/2 ML VIAL IV SCH ×2 (09:34→21:51)
[2019-02-16] MEDS: FAT EMULSION 20% 250 ML IV SCH (13:19)
[2019-02-16] MEDS: PROCHLORPERAZINE 10 MG TABLET PO PRN (16:42)
[2019-02-16] MEDS: MONTELUKAST 10 MG TABLET PO SCH (21:47)
[2019-02-16] MEDS: chlorproMAZINE 25 MG/1 ML AMP IM PRN (21:50)
[2019-02-16] MEDS: SIMVASTATIN 10 MG TABLET PO SCH (21:52)
[2019-02-17] MEDS: ALBUTEROL/IPRATROPIUM 3 ML NEB RESP TX SCH ×4 (01:00→19:30)
[2019-02-17] MEDS: INSULIN REGULAR 100 UNIT/ML SUBCUT SCH ×4 (01:40→18:25)
[2019-02-17] MEDS: METOCLOPRAMIDE 10 MG/2 ML VIAL IV SCH ×4 (01:41→17:13)
[2019-02-17] MEDS: PROCHLORPERAZINE 10 MG TABLET PO PRN ×2 (01:45→11:00)
[2019-02-17] MEDS: chlorproMAZINE 25 MG/1 ML AMP IM PRN ×2 (04:30→12:32)
[2019-02-17 04:43] LABS: Basophils % 0.5 % (0.0-0.8); Eosinophils # 0.5 10*3/uL (0.0-0.87); Eosinophils % 5.4 % (0.00-10.9); Hemoglobin 10.6 GM/DL (14.0-18.0); Immature Granulocytes % 0.2 %; Immature Granulocytes Absolute 0.02 #; Lymphocytes # 0.9 10*3/uL (1.4-4.0); Lymphocytes % 11.4 % (21.2-54.2); Mean Corpuscular HGB Conc 32.1 GM/DL (32-36); Mean Corpuscular Volume 90.4 FL (87-102); Mean Platelet Volume 9.7 FL (9.6-12.0); Monocytes % 10.6 % (1.7-12.7); Neutrophils % 71.9 % (38.7-73.9); Platelet Count 353 T/CUMM (130-400); Red Blood Count 3.65 MC/CUMM (3.8-5.5); Red Cell Distribution Width 13.8 % (9.3-17.3); White Blood Count 8.3 T/CUMM (4-12)
[2019-02-17] MEDS: amLODIPine 10 MG TABLET PO SCH (10:00)
[2019-02-17] MEDS: BISOPROLOL 5 MG TABLET PO SCH (10:00)
[2019-02-17] MEDS: ENOXAPARIN 40 MG/0.4 ML SYRINGE SUBCUT SCH (10:01)
[2019-02-17] MEDS: SIMETHICONE CHEW 125 MG TABLET PO SCH ×4 (10:06→21:04)
[2019-02-17] MEDS: CALCIUM (CITRATE) 200 MG TABLET PO SCH (10:06)
[2019-02-17] MEDS: POTASSIUM CHLORIDE 20 MEQ TABLET PO SCH (10:06)
[2019-02-17] MEDS: FAMOTIDINE 20 MG/2 ML VIAL IV SCH ×2 (10:06→21:04)
[2019-02-17] MEDS: FAT EMULSION 20% 250 ML IV SCH (14:55)
[2019-02-17] MEDS: ONDANSETRON 4 MG/2 ML VIAL IV PRN ×2 (15:08→21:02)
[2019-02-17] MEDS: TRACE ELEMENTS (5) 1 ML, MULTIVITAMIN INJ 10 ML in AMINO ACIDS/DEXT/LYTES 5-15% 2,000 ML IV SCH (17:16)
[2019-02-17] MEDS: MONTELUKAST 10 MG TABLET PO SCH (21:02)
[2019-02-17] MEDS: SIMVASTATIN 10 MG TABLET PO SCH (21:04)
[2019-02-18] MEDS: INSULIN REGULAR 100 UNIT/ML SUBCUT SCH ×4 (00:20→19:18)
[2019-02-18] MEDS: METOCLOPRAMIDE 10 MG/2 ML VIAL IV SCH ×4 (00:21→19:33)
[2019-02-18] MEDS: ALBUTEROL/IPRATROPIUM 3 ML NEB RESP TX SCH ×4 (01:51→19:52)
[2019-02-18 04:59] LABS: Basophils % 0.5 % (0.0-0.8); Eosinophils # 0.5 10*3/uL (0.0-0.87); Eosinophils % 5.3 % (0.00-10.9); Hematocrit 33.4 VOL% (42.0-52.0); Hemoglobin 10.7 GM/DL (14.0-18.0); Immature Granulocytes % 0.3 %; Immature Granulocytes Absolute 0.03 #; Lymphocytes # 1.1 10*3/uL (1.4-4.0); Mean Corpuscular Volume 90.5 FL (87-102); Mean Platelet Volume 9.6 FL (9.6-12.0); Monocytes % 11.8 % (1.7-12.7); Neutrophils % 69.1 % (38.7-73.9); Platelet Count 324 T/CUMM (130-400); Red Blood Count 3.69 MC/CUMM (3.8-5.5); Red Cell Distribution Width 13.7 % (9.3-17.3); White Blood Count 8.7 T/CUMM (4-12)
[2019-02-18 05:30] LABS: Calcium 8.7 MG/DL (8.5-10.1); Osmolality,Calculated 285.5 MOS/KG (273-304); Prealbumin 15.4 MG/DL (20-40)
[2019-02-18] MEDS ORDERED: HYDROCORTISONE 2.5% RECTAL CREAM 30 GM TUBE TOP PRN (08:38)
[2019-02-18] MEDS: CALCIUM (CITRATE) 200 MG TABLET PO SCH (09:10)
[2019-02-18] MEDS: SIMETHICONE CHEW 125 MG TABLET PO SCH ×4 (09:10→21:38)
[2019-02-18] MEDS: FAMOTIDINE 20 MG/2 ML VIAL IV SCH ×2 (09:10→21:38)
[2019-02-18] MEDS: ENOXAPARIN 40 MG/0.4 ML SYRINGE SUBCUT SCH (09:10)
[2019-02-18] MEDS: POTASSIUM CHLORIDE 20 MEQ TABLET PO SCH (09:10)
[2019-02-18] MEDS: amLODIPine 10 MG TABLET PO SCH (09:10)
[2019-02-18] MEDS: BISOPROLOL 5 MG TABLET PO SCH (09:11)
[2019-02-18] MEDS: ONDANSETRON 4 MG/2 ML VIAL IV PRN (10:05)
[2019-02-18] MEDS: TRACE ELEMENTS (5) 1 ML, MULTIVITAMIN INJ 10 ML in AMINO ACIDS/DEXT/LYTES 5-15% 2,000 ML IV SCH (13:05)
[2019-02-18] MEDS: FAT EMULSION 20% 250 ML IV SCH (15:48)
[2019-02-18] MEDS: TRACE ELEMENTS (5) 1 ML, MULTIVITAMIN INJ 10 ML, INSULIN REGULAR 20 UNIT in AMINO ACIDS... IV SCH (17:22)
[2019-02-18] MEDS: MONTELUKAST 10 MG TABLET PO SCH (21:37)
[2019-02-18] MEDS: SIMVASTATIN 10 MG TABLET PO SCH (21:38)
[2019-02-19] MEDS: METOCLOPRAMIDE 10 MG/2 ML VIAL IV SCH ×4 (00:44→18:46)
[2019-02-19] MEDS: INSULIN REGULAR 100 UNIT/ML SUBCUT SCH ×4 (00:45→18:22)
[2019-02-19 05:59] LABS: Basophils # 0.1 10*3/uL (0.0-0.2); Basophils % 0.7 % (0.0-0.8); Eosinophils # 0.4 10*3/uL (0.0-0.87); Eosinophils % 5.9 % (0.00-10.9); Hematocrit 34.1 VOL% (42.0-52.0); Hemoglobin 10.7 GM/DL (14.0-18.0); Immature Granulocytes % 0.4 %; Immature Granulocytes Absolute 0.03 #; Lymphocytes # 1.1 10*3/uL (1.4-4.0); Lymphocytes % 14.9 % (21.2-54.2); Mean Corpuscular HGB Conc 31.4 GM/DL (32-36); Mean Corpuscular Volume 91.2 FL (87-102); Mean Platelet Volume 9.7 FL (9.6-12.0); Monocytes % 13.1 % (1.7-12.7); Platelet Count 304 T/CUMM (130-400); Red Blood Count 3.74 MC/CUMM (3.8-5.5); Red Cell Distribution Width 13.8 % (9.3-17.3); White Blood Count 7.2 T/CUMM (4-12)
[2019-02-19] MEDS: ALBUTEROL/IPRATROPIUM 3 ML NEB RESP TX SCH ×4 (06:00→19:08)
[2019-02-19] MEDS: BISOPROLOL 5 MG TABLET PO SCH (08:27)
[2019-02-19] MEDS: amLODIPine 10 MG TABLET PO SCH (08:28)
[2019-02-19] MEDS: CALCIUM (CITRATE) 200 MG TABLET PO SCH (09:33)
[2019-02-19] MEDS: POTASSIUM CHLORIDE 20 MEQ TABLET PO SCH (09:34)
[2019-02-19] MEDS: FAMOTIDINE 20 MG/2 ML VIAL IV SCH ×2 (09:34→20:27)
[2019-02-19] MEDS: SIMETHICONE CHEW 125 MG TABLET PO SCH ×4 (09:34→20:27)
[2019-02-19] MEDS: ENOXAPARIN 40 MG/0.4 ML SYRINGE SUBCUT SCH (10:33)
[2019-02-19] MEDS: TRACE ELEMENTS (5) 1 ML, MULTIVITAMIN INJ 10 ML, INSULIN REGULAR 20 UNIT in AMINO ACIDS... IV SCH (12:53)
[2019-02-19] MEDS: FAT EMULSION 20% 250 ML IV SCH (14:29)
[2019-02-19] MEDS: SIMVASTATIN 10 MG TABLET PO SCH (20:27)
[2019-02-19] MEDS: MONTELUKAST 10 MG TABLET PO SCH (20:27)
[2019-02-20] MEDS: ALBUTEROL/IPRATROPIUM 3 ML NEB RESP TX SCH ×3 (00:18→20:11)
[2019-02-20] MEDS: INSULIN REGULAR 100 UNIT/ML SUBCUT SCH ×4 (00:42→18:35)
[2019-02-20] MEDS: METOCLOPRAMIDE 10 MG/2 ML VIAL IV SCH ×4 (00:43→18:36)
[2019-02-20] MEDS: TRACE ELEMENTS (5) 1 ML, MULTIVITAMIN INJ 10 ML, INSULIN REGULAR 20 UNIT in AMINO ACIDS... IV SCH (09:46)
[2019-02-20] MEDS: SIMETHICONE CHEW 125 MG TABLET PO SCH ×4 (09:47→20:56)
[2019-02-20] MEDS: FAMOTIDINE 20 MG/2 ML VIAL IV SCH ×2 (09:48→20:56)
[2019-02-20] MEDS: POTASSIUM CHLORIDE 20 MEQ TABLET PO SCH (09:48)
[2019-02-20] MEDS: CALCIUM (CITRATE) 200 MG TABLET PO SCH (09:48)
[2019-02-20] MEDS: BISOPROLOL 5 MG TABLET PO SCH (09:52)
[2019-02-20] MEDS: ENOXAPARIN 40 MG/0.4 ML SYRINGE SUBCUT SCH (09:52)
[2019-02-20] MEDS: amLODIPine 10 MG TABLET PO SCH (09:52)
[2019-02-20] MEDS: FAT EMULSION 20% 250 ML IV SCH (13:47)
[2019-02-20] MEDS: MONTELUKAST 10 MG TABLET PO SCH (20:02)
[2019-02-20] MEDS: SIMVASTATIN 10 MG TABLET PO SCH (20:56)
[2019-02-21] MEDS: INSULIN REGULAR 100 UNIT/ML SUBCUT SCH ×4 (00:38→18:13)
[2019-02-21] MEDS: METOCLOPRAMIDE 10 MG/2 ML VIAL IV SCH ×4 (00:40→18:14)
[2019-02-21] MEDS: ALBUTEROL/IPRATROPIUM 3 ML NEB RESP TX SCH ×4 (01:00→20:19)
[2019-02-21] MEDS: TRACE ELEMENTS (5) 1 ML, MULTIVITAMIN INJ 10 ML, INSULIN REGULAR 20 UNIT in AMINO ACIDS... IV SCH (05:37)
[2019-02-21] MEDS: ENOXAPARIN 40 MG/0.4 ML SYRINGE SUBCUT SCH (08:42)
[2019-02-21] MEDS: amLODIPine 10 MG TABLET PO SCH (08:43)
[2019-02-21] MEDS: BISOPROLOL 5 MG TABLET PO SCH (08:43)
[2019-02-21] MEDS: POTASSIUM CHLORIDE 20 MEQ TABLET PO SCH (08:44)
[2019-02-21] MEDS: CALCIUM (CITRATE) 200 MG TABLET PO SCH (08:44)
[2019-02-21] MEDS: SIMETHICONE CHEW 125 MG TABLET PO SCH ×4 (08:44→20:58)
[2019-02-21] MEDS: FAMOTIDINE 20 MG/2 ML VIAL IV SCH ×2 (08:45→20:58)
[2019-02-21] MEDS: FINASTERIDE 5 MG TABLET PO SCH (10:04)
[2019-02-21] MEDS: TAMSULOSIN 0.4 MG CAPSULE PO SCH (10:04)
[2019-02-21] MEDS: FAT EMULSION 20% 250 ML IV SCH (14:19)
[2019-02-21] MEDS: MONTELUKAST 10 MG TABLET PO SCH (20:18)
[2019-02-21] MEDS: SIMVASTATIN 10 MG TABLET PO SCH (20:58)
[2019-02-22] MEDS: INSULIN REGULAR 100 UNIT/ML SUBCUT SCH ×4 (01:03→18:38)
[2019-02-22] MEDS: METOCLOPRAMIDE 10 MG/2 ML VIAL IV SCH ×4 (01:04→18:43)
[2019-02-22] MEDS: TRACE ELEMENTS (5) 1 ML, MULTIVITAMIN INJ 10 ML, INSULIN REGULAR 20 UNIT in AMINO ACIDS... IV SCH (01:04)
[2019-02-22] MEDS: ALBUTEROL/IPRATROPIUM 3 ML NEB RESP TX SCH ×5 (01:13→19:15)
[2019-02-22 05:15] LABS: Calcium 8.6 MG/DL (8.5-10.1); Osmolality,Calculated 285.5 MOS/KG (273-304)
[2019-02-22] MEDS: BISOPROLOL 5 MG TABLET PO SCH (08:29)
[2019-02-22] MEDS: cloNIDine 0.3 MG/24 HR PATCH TRANSDERM SCH (08:29)
[2019-02-22] MEDS: FINASTERIDE 5 MG TABLET PO SCH (08:29)
[2019-02-22] MEDS: ENOXAPARIN 40 MG/0.4 ML SYRINGE SUBCUT SCH (08:29)
[2019-02-22] MEDS: amLODIPine 10 MG TABLET PO SCH (08:29)
[2019-02-22] MEDS: TAMSULOSIN 0.4 MG CAPSULE PO SCH (08:30)
[2019-02-22] MEDS: POTASSIUM CHLORIDE 20 MEQ TABLET PO SCH (09:42)
[2019-02-22] MEDS: FAMOTIDINE 20 MG/2 ML VIAL IV SCH ×2 (09:42→23:28)
[2019-02-22] MEDS: CALCIUM (CITRATE) 200 MG TABLET PO SCH (09:42)
[2019-02-22] MEDS: SIMETHICONE CHEW 125 MG TABLET PO SCH ×4 (09:42→23:28)
[2019-02-22] MEDS ORDERED: TRACE ELEMENTS (5) 1 ML, MULTIVITAMIN INJ 10 ML, INSULIN REGULAR 20 UNIT in AMINO ACIDS... IV SCH (10:00)
[2019-02-22] MEDS: MONTELUKAST 10 MG TABLET PO SCH (22:16)
[2019-02-22] MEDS: SIMVASTATIN 10 MG TABLET PO SCH (23:28)
[2019-02-23] MEDS: METOCLOPRAMIDE 10 MG/2 ML VIAL IV SCH ×3 (00:31→13:07)
[2019-02-23] MEDS: INSULIN REGULAR 100 UNIT/ML SUBCUT SCH ×3 (00:56→13:07)
[2019-02-23] MEDS: ALBUTEROL/IPRATROPIUM 3 ML NEB RESP TX SCH ×2 (01:30→07:40)
[2019-02-23 05:38] LABS: Basophils # 0.1 10*3/uL (0.0-0.2); Basophils % 0.6 % (0.0-0.8); Eosinophils # 0.4 10*3/uL (0.0-0.87); Eosinophils % 4.8 % (0.00-10.9); Hematocrit 33.3 VOL% (42.0-52.0); Hemoglobin 10.7 GM/DL (14.0-18.0); Immature Granulocytes % 0.3 %; Immature Granulocytes Absolute 0.03 #; Lymphocytes # 1.6 10*3/uL (1.4-4.0); Lymphocytes % 18.4 % (21.2-54.2); Mean Corpuscular HGB Conc 32.1 GM/DL (32-36); Mean Corpuscular Volume 90.5 FL (87-102); Mean Platelet Volume 10.6 FL (9.6-12.0); Monocytes % 10.7 % (1.7-12.7); Neutrophils % 65.2 % (38.7-73.9); Platelet Count 280 T/CUMM (130-400); Red Blood Count 3.68 MC/CUMM (3.8-5.5); White Blood Count 8.8 T/CUMM (4-12)
[2019-02-23 06:19] LABS: Albumin 2.9 G/DL (3.4-5.0); Bilirubin,Total 0.7 MG/DL (0.2-1.0); Calcium 8.7 MG/DL (8.5-10.1); Osmolality,Calculated 281.5 MOS/KG (273-304); Total Protein 6.5 G/DL (6.4-8.3)
[2019-02-23 08:56] VITALS: BP 134/76
[2019-02-23] MEDS ORDERED: PANTOPRAZOLE 40 MG TABLET PO SCH (09:00)
[2019-02-23] MEDS: BISOPROLOL 5 MG TABLET PO SCH (09:41)
[2019-02-23] MEDS: TAMSULOSIN 0.4 MG CAPSULE PO SCH (09:41)
[2019-02-23] MEDS: FINASTERIDE 5 MG TABLET PO SCH (09:42)
[2019-02-23] MEDS: amLODIPine 10 MG TABLET PO SCH (09:42)
[2019-02-23] MEDS: CALCIUM (CITRATE) 200 MG TABLET PO SCH (09:43)
[2019-02-23] MEDS: POTASSIUM CHLORIDE 20 MEQ TABLET PO SCH (09:43)
[2019-02-23] MEDS: SIMETHICONE CHEW 125 MG TABLET PO SCH ×2 (09:44→13:08)
[2019-02-23] MEDS: ENOXAPARIN 40 MG/0.4 ML SYRINGE SUBCUT SCH (09:44)
[2019-02-23] MEDS: FAMOTIDINE 20 MG/2 ML VIAL IV SCH (09:44)
== END 2019-02-23 13:10 | disposition home or self-care (01) | DRG 357 ==
LOC: N.ED 10:37 → N.EDINP 12:58 → N.2E 14:44 → N.3E 02-06 11:17
PROVIDERS: ADMIT Family Medicine; ATTEND Family Medicine

== ENCOUNTER 2022-04-14 15:58 | Inpatient (IN) ==
[2022-04-14 19:19] LABS: Basophils % 0.2 % (0.0-0.8); Eosinophils % 0.1 % (0.00-10.9); Hematocrit 41.7 VOL% (42.0-52.0); Hemoglobin 13.6 GM/DL (14.0-18.0); Immature Granulocytes % 0.4 %; Immature Granulocytes Absolute 0.05 #; Lymphocytes % 15.9 % (21.2-54.2); Mean Corpuscular HGB Conc 32.6 GM/DL (32-36); Mean Corpuscular Volume 86.3 FL (87-102); Mean Platelet Volume 9.5 FL (9.6-12.0); Monocytes # 1.5 10*3/uL (0.11-0.8); Monocytes % 11.9 % (1.7-12.7); Neutrophils % 71.5 % (38.7-73.9); Platelet Count 284 T/CUMM (130-400); Red Blood Count 4.83 MC/CUMM (3.8-5.5); Red Cell Distribution Width 15.3 % (9.3-17.3); White Blood Count 12.3 T/CUMM (4-12)
[2022-04-14 19:59] LABS: Albumin 3.7 G/DL (3.4-5.0); Calcium 10.4 MG/DL (8.5-10.1); Osmolality,Calculated 269.8 MOS/KG (273-304); Potassium 3.3 MMOL/L (3.5-5.1); Total Protein 7.9 G/DL (6.4-8.2)
[2022-04-14 21:12] LABS: Hyaline Casts,Urine 3 /LPF (0-3); Mucus,Urine Many /LPF (Occasional); RBC,Urine 16 /HPF (0-4); Squamous Epithelial Cell,Urine Occasional /HPF (0-10)
[2022-04-14] MEDS ORDERED: MORPHINE 2 MG/1 ML SYRINGE IV STA (21:13)
[2022-04-14] MEDS ORDERED: ONDANSETRON 4 MG/2 ML VIAL IV STA (21:13)
[2022-04-14] MEDS ORDERED: SODIUM CHLORIDE 0.9% 1,000 ML IV STA (21:13)
[2022-04-14 21:22] LABS: Urine Appearance Clear (Clear); Urine Color Yellow (Yellow); Urine pH 5.5 (4.5-8.0)
[2022-04-14 21:23] LABS: Glucose,Urine (UA) Negative (Negative); Ketones,Urine Negative (Negative); Nitrite,Urine Negative (Negative); Protein,Urine 100 mg/dL (Negative)
[2022-04-14 21:24] LABS: Bilirubin,Urine Moderate mg/dL (Negative); Blood, Urine Trace mg/dL (Negative); Urine Urobilinogen 0.2 eU/dL (<2.0)
[2022-04-14] MEDS ORDERED: LIDOCAINE 2% VISCOUS 100 ML BOTTLE ONE (22:30)
[2022-04-14] MEDS ORDERED: PHENOL 1.4% THROAT SPRAY 177 ML BOTTLE PO PRN (22:30)
[2022-04-14] MEDS ORDERED: DEXTROSE 50% 25 GM/50 ML VIAL IV STA (22:41)
[2022-04-14] MEDS ORDERED: GLUCAGON 1 MG VIAL IM PRN (22:44)
[2022-04-14] MEDS ORDERED: ONDANSETRON 4 MG/2 ML VIAL IV PRN (22:44)
[2022-04-14] MEDS ORDERED: MORPHINE 2 MG/1 ML SYRINGE IV PRN (22:44)
[2022-04-14] MEDS ORDERED: hydrALAZINE 20 MG/1 ML VIAL IV PRN (22:44)
[2022-04-14] MEDS ORDERED: DEXTROSE 10% 250 ML BAG IV STA (22:45)
[2022-04-14] MEDS ORDERED: DEXTROSE 10% 250 ML BAG IV PRN (22:53)
[2022-04-14] MEDS ORDERED: DEXTROSE 50% 25 GM/50 ML SYRINGE IV STA (22:54)
[2022-04-14] MEDS: DEXT 5% NACL 0.9% KCL 40 MEQ 40 MEQ/1,000 ML BAG IV SCH (23:25)
[2022-04-14] MEDS: INSULIN LISPRO 100 UNIT/ML SUBCUT SCH (23:45)
[2022-04-15] MEDS ORDERED: chlorproMAZINE 25 MG/1 ML AMP IM ONE (03:00)
[2022-04-15] MEDS: INSULIN LISPRO 100 UNIT/ML SUBCUT SCH (05:59)
[2022-04-15 06:01] LABS: Basophils % 0.3 % (0.0-0.8); Eosinophils # 0.1 10*3/uL (0.0-0.87); Eosinophils % 0.8 % (0.00-10.9); Immature Granulocytes % 0.4 %; Immature Granulocytes Absolute 0.04 #; Lymphocytes # 2.2 10*3/uL (1.4-4.0); Mean Corpuscular HGB Conc 33.3 GM/DL (32-36); Mean Corpuscular Volume 85.9 FL (87-102); Mean Platelet Volume 9.7 FL (9.6-12.0); Monocytes # 1.4 10*3/uL (0.11-0.8); Monocytes % 14.9 % (1.7-12.7); Neutrophils % 60.6 % (38.7-73.9); Platelet Count 242 T/CUMM (130-400); Red Blood Count 4.19 MC/CUMM (3.8-5.5); Red Cell Distribution Width 15.5 % (9.3-17.3); White Blood Count 9.6 T/CUMM (4-12)
[2022-04-15 06:17] LABS: Calcium 9.1 MG/DL (8.5-10.1); Potassium 3.2 MMOL/L (3.5-5.1)
[2022-04-15 06:18] LABS: Osmolality,Calculated 273.5 MOS/KG (273-304)
[2022-04-15] MEDS ORDERED: DEXTROSE 50% 25 GM/50 ML VIAL IV ONE (06:22)
[2022-04-15] MEDS: DEXT 5% NACL 0.9% KCL 40 MEQ 40 MEQ/1,000 ML BAG IV SCH (10:20)
[2022-04-15] MEDS: amLODIPine 10 MG TABLET PO SCH (10:31)
[2022-04-15] MEDS: LOSARTAN 50 MG TABLET PO SCH (10:32)
[2022-04-15] MEDS: FINASTERIDE 5 MG TABLET PO SCH (11:03)
[2022-04-15] MEDS ORDERED: MAGNESIUM SULF RIDER 2 GM/50 ML PREMIX IV ONE (13:48)
[2022-04-15] MEDS: PANTOPRAZOLE 40 MG VIAL IV SCH (15:23)
[2022-04-15] MEDS: HEPARIN 5,000 UNIT/1 ML VIAL SUBCUT SCH (15:23)
[2022-04-15 16:12] LABS: % Iron Saturation 12.8 % (18-50)
[2022-04-15 16:19] LABS: Folate 22.87 NG/ML (5.38-24.0)
[2022-04-15 16:29] LABS: Basophils % 0.3 % (0.0-0.8); Eosinophils # 0.3 10*3/uL (0.0-0.87); Eosinophils % 3.1 % (0.00-10.9); Hematocrit 37.1 VOL% (42.0-52.0); Hemoglobin 12.3 GM/DL (14.0-18.0); Immature Granulocytes % 0.6 %; Immature Granulocytes Absolute 0.05 #; Lymphocytes # 1.4 10*3/uL (1.4-4.0); Mean Corpuscular HGB Conc 33.2 GM/DL (32-36); Mean Corpuscular Volume 86.1 FL (87-102); Mean Platelet Volume 9.4 FL (9.6-12.0); Monocytes # 1.1 10*3/uL (0.11-0.8); Monocytes % 12.1 % (1.7-12.7); Neutrophils % 67.9 % (38.7-73.9); Platelet Count 251 T/CUMM (130-400); Red Blood Count 4.31 MC/CUMM (3.8-5.5); Red Cell Distribution Width 15.4 % (9.3-17.3); White Blood Count 8.8 T/CUMM (4-12)
[2022-04-15] MEDS: metroNIDAZOLE INJ 500 MG/100 ML PREMIX IV SCH ×2 (16:30→22:51)
[2022-04-15] MEDS: cefTRIAXone 1,000 MG in SODIUM CHLORIDE 0.9% 100 ML IV SCH (17:35)
[2022-04-15] MEDS: TAMSULOSIN 0.4 MG CAPSULE PO SCH (22:51)
[2022-04-16] MEDS: HEPARIN 5,000 UNIT/1 ML VIAL SUBCUT SCH ×2 (04:45→15:38)
[2022-04-16 05:31] LABS: Risk Ratio 2.33; VLDL Cholesterol 16.8 MG/DL
[2022-04-16 05:54] LABS: Albumin 3.1 G/DL (3.4-5.0); Bilirubin,Total 0.7 MG/DL (0.20-1.00); Potassium 3.7 MMOL/L (3.5-5.1)
[2022-04-16] MEDS: DEXT 5% NACL 0.9% KCL 40 MEQ 40 MEQ/1,000 ML BAG IV SCH ×3 (06:49→21:06)
[2022-04-16] MEDS: metroNIDAZOLE INJ 500 MG/100 ML PREMIX IV SCH ×3 (06:49→22:34)
[2022-04-16] MEDS: FINASTERIDE 5 MG TABLET PO SCH (09:28)
[2022-04-16] MEDS: amLODIPine 10 MG TABLET PO SCH (09:28)
[2022-04-16] MEDS: LOSARTAN 50 MG TABLET PO SCH (09:28)
[2022-04-16] MEDS: PANTOPRAZOLE 40 MG VIAL IV SCH (09:45)
[2022-04-16] MEDS: CYANOCOBALAMIN 1000 MCG/1 ML VIAL SUBCUT SCH (15:38)
[2022-04-16] MEDS: cefTRIAXone 1,000 MG in SODIUM CHLORIDE 0.9% 100 ML IV SCH (16:45)
[2022-04-16] MEDS: MAGNESIUM CHLORIDE 64 MG TABLET PO SCH (21:05)
[2022-04-16] MEDS: TAMSULOSIN 0.4 MG CAPSULE PO SCH (21:05)
[2022-04-17] MEDS: HEPARIN 5,000 UNIT/1 ML VIAL SUBCUT SCH ×2 (02:25→16:34)
[2022-04-17] MEDS: metroNIDAZOLE INJ 500 MG/100 ML PREMIX IV SCH (05:46)
[2022-04-17 06:09] LABS: Basophils # 0.1 10*3/uL (0.0-0.2); Basophils % 0.5 % (0.0-0.8); Eosinophils # 0.4 10*3/uL (0.0-0.87); Eosinophils % 4.7 % (0.00-10.9); Hemoglobin 11.9 GM/DL (14.0-18.0); Immature Granulocytes % 0.8 %; Immature Granulocytes Absolute 0.07 #; Lymphocytes # 1.6 10*3/uL (1.4-4.0); Lymphocytes % 16.8 % (21.2-54.2); Mean Corpuscular HGB Conc 33.1 GM/DL (32-36); Mean Corpuscular Volume 85.7 FL (87-102); Mean Platelet Volume 9.6 FL (9.6-12.0); Monocytes # 1.2 10*3/uL (0.11-0.8); Monocytes % 12.6 % (1.7-12.7); Neutrophils % 64.6 % (38.7-73.9); Platelet Count 243 T/CUMM (130-400); Red Cell Distribution Width 15.4 % (9.3-17.3); White Blood Count 9.2 T/CUMM (4-12)
[2022-04-17 06:23] LABS: Calcium 8.9 MG/DL (8.5-10.1); Osmolality,Calculated 279.3 MOS/KG (273-304); Potassium 3.3 MMOL/L (3.5-5.1)
[2022-04-17] MEDS ORDERED: BISOPROLOL/HCTZ 5-6.25 MG TABLET PO SCH (09:00)
[2022-04-17] MEDS ORDERED: SIMVASTATIN 20 MG TABLET PO SCH (09:00)
[2022-04-17] MEDS ORDERED: allopurinoL 300 MG TABLET PO SCH (09:00)
[2022-04-17] MEDS ORDERED: PANTOPRAZOLE 40 MG TABLET PO SCH (09:00)
[2022-04-17] MEDS ORDERED: GLIMEPIRIDE 4 MG TABLET PO SCH (09:00)
[2022-04-17] MEDS ORDERED: MULTIVITAMIN (CENTRUM) TABLET PO SCH (09:00)
[2022-04-17] MEDS: FINASTERIDE 5 MG TABLET PO SCH (09:51)
[2022-04-17] MEDS: LOSARTAN 50 MG TABLET PO SCH (09:51)
[2022-04-17] MEDS: amLODIPine 10 MG TABLET PO SCH (09:51)
[2022-04-17] MEDS: MAGNESIUM CHLORIDE 64 MG TABLET PO SCH (09:52)
[2022-04-17] MEDS: CYANOCOBALAMIN 1000 MCG/1 ML VIAL SUBCUT SCH (09:52)
[2022-04-17] MEDS ORDERED: POTASSIUM CHLORIDE 20 MEQ TABLET PO ONE (11:02)
[2022-04-17 15:57] VITALS: BP 150/80
[2022-04-17] MEDS: cefTRIAXone 1,000 MG in SODIUM CHLORIDE 0.9% 100 ML IV SCH (16:35)
[2022-04-17] MEDS ORDERED: metroNIDAZOLE 500 MG TABLET PO SCH (22:00)
[2022-04-18] MEDS ORDERED: CYANOCOBALAMIN 500 MCG TABLET PO SCH (09:00)
== END 2022-04-17 17:28 | disposition home or self-care (01) | DRG 389 ==
LOC: N.ED 15:58 → N.EDINP 22:44 → N.3E 04-15 16:06
PROVIDERS: ADMIT Internal Medicine; ATTEND Internal Medicine